=== PATIENT | female | born 1985 | race Caucasian/White ===

== ENCOUNTER 2017-02-10 11:25 | Emergency (ER) | payer OTHER ==
[~2017-02-10] VITALS: Ht 162.6 cm; Wt 71.5 kg
[2017-02-10] MEDS ORDERED: ZYRT10CA PO (11:38)
[2017-02-10] MEDS ORDERED: FLON1SPR (11:38)
[2017-02-10] MEDS ORDERED: LEXA1TAB2 PO (11:38)
[2017-02-10 13:47] LABS: MEAN CORPUSCULAR HEMOGLOBIN 29.3 pg (27.0-33.0); MEAN CORPUSCULAR HGB CONC 34.7 g/dl (32.0-36.5); MEAN CORPUSCULAR VOLUME 84.5 fl (80.0-96.0); RED CELL DISTRIBUTION WIDTH 11.9 % (11.5-14.5); WHITE BLOOD COUNT 7.9 K/mm3 (4.0-10.0)
[2017-02-10 13:54] LABS: CONTROL LINE HCG INT CTR LINE PRESENT
[2017-02-10 14:14] LABS: ANION GAP 5 MEQ/L (8-16); BLOOD UREA NITROGEN 15 MG/DL (7-18); CALCIUM LEVEL 9.2 MG/DL (8.5-10.1); CARBON DIOXIDE LEVEL 31 MEQ/L (21-32); CHLORIDE LEVEL 104 MEQ/L (98-107); CREATININE FOR GFR 0.64 MG/DL (0.55-1.02); GLOMERULAR FILTRATION RATE > 60.0 (>60); GLUCOSE, FASTING 90 MG/DL (70-105); POTASSIUM SERUM 4.1 MEQ/L (3.5-5.1); SODIUM LEVEL 140 MEQ/L (136-145)
[2017-02-10 14:32] VITALS: BP 127/74
== END 2017-02-10 14:34 | disposition home or self-care (01) ==
LOC: M ED 11:25
DX: R53.83 Other fatigue (principal); Z79.899 Other long term (current) drug therapy

== ENCOUNTER → 2019-01-28 | Outpatient (REF) | payer OTHER ==
[~2019-01-28] MED LIST: FLON1SPR; LEXA1TAB2 PO; ZYRT10CA PO
[2019-01-28 20:20] LABS: BASO % 0.4 % (0.0-1.0); EOS # 0.1 10^3/uL (0.0-0.50); EOS % 0.5 % (0.0-3.0); HEMATOCRIT 44.6 % (36.0-47.0); HEMOGLOBIN 14.8 g/dl (12.0-15.5); LYMPH # 2.7 10^3/uL (1.5-4.5); LYMPH % 29.7 % (24.0-44.0); MEAN CORPUSCULAR HGB CONC 33.2 g/dl (32.0-36.5); MEAN CORPUSCULAR VOLUME 87.5 fl (80.0-96.0); MONO # 0.6 10^3/uL (0.0-0.8); MONO % 6.1 % (0.0-5.0); NEUTROPHILS # 5.8 10^3/uL (1.8-7.7); PLATELET COUNT, AUTOMATED 313 10^3/uL (150-450); WHITE BLOOD COUNT 9.2 10^3/uL (4.0-10.0)
[2019-01-28 20:37] LABS: ALBUMIN 4.2 GM/DL (3.2-5.2); ALT/SGPT 22 U/L (12-78); BILIRUBIN,TOTAL 1.2 MG/DL (0.2-1.0); BLOOD UREA NITROGEN 9 MG/DL (7-18); CALCIUM LEVEL 9.2 MG/DL (8.5-10.1); CARBON DIOXIDE LEVEL 29 MEQ/L (21-32); CHLORIDE LEVEL 103 MEQ/L (98-107); CREATININE FOR GFR 0.67 MG/DL (0.55-1.30); GLOMERULAR FILTRATION RATE > 60.0 (>60); GLUCOSE, FASTING 80 MG/DL (70-100); POTASSIUM SERUM 4.2 MEQ/L (3.5-5.1); SODIUM LEVEL 139 MEQ/L (136-145); TOTAL PROTEIN 7.4 GM/DL (6.4-8.2)
== END ==
LOC: M SFHCLERA 15:18
PROVIDERS: ATTEND Physician Assistant Medical
DX: R11.0 Nausea (principal); R19.7 Diarrhea, unspecified
CPT/HCPCS: 80053; 81002; 81025; 85025; 87507; G0463

== ENCOUNTER → 2019-03-15 | Outpatient (CLI) | payer OTHER ==
[~2019-03-15] MED LIST changes: +ISOVUE-370 76% 100ML VIAL (Q9967) As Ordered ONE
--- NOTE | 2019-03-15 16:54 | REP ---
CT of the abdomen and pelvis without with IV contrast with multiphase postcontrast scanning, CT urogram protocol: There are no comparison studies. The study is performed for hematuria and recurrent UTI s. There are no comparisons. There are no renal, ureteral or bladder calculi. There is no hydronephrosis. There is a small phlebolith in the pelvis on the left. There are no solid or cystic renal masses. There is no hydronephrosis. There are no bladder masses. The visualized lung pabon are unremarkable. The hepatic parenchyma, gallbladder, pancreas, spleen, adrenals and abdominal aorta are unremarkable. There is a dense object in the mesenteric fat anteriorly, having a somewhat T U R Y A shape, of uncertain significance, possibly a foreign body. This can be seen on the unenhanced study spanning images 62 - 70. There is diastases of the rectus abdominus with no hernia. The bowel and mesentery are unremarkable. Pelvis: The bladder is unremarkable. There is an IUD in the uterus. The uterus is tilted to the left and anteverted. There is a right adnexal 1.5 cm follicle. Left adnexa is unremarkable. There is no pelvic ascites. There are occasional diverticula in the descending colon without diverticulitis. Impression: There are no renal, ureteral or bladder calculi. There are no renal or bladder masses. There is no hydronephrosis. There is an IUD in the uterus. There are is diverticulosis without diverticulitis. There is a metallic foreign body in the mesenteric fat anteriorly of uncertain significance. Electronically Signed by Darci Uriarte MD 03/15/2019 04:45 P
== END ==
LOC: M RAD 15:14
PROVIDERS: ATTEND Family Medicine
DX: R31.9 Hematuria, unspecified (principal); Z97.5 Presence of (intrauterine) contraceptive device; K57.90 Diverticulosis of intestine, part unspecified, without perforation or abscess without bleeding
CPT/HCPCS: 74178; Q9967